=== PATIENT | female | born 2000 | race Caucasian/White ===

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

== ENCOUNTER 2020-04-05 06:35 | Emergency (ER) | payer BC ==
[2020-04-05 07:30] LABS: Pregnancy Test - Urine (BHCG) POSITIVE (Negative); Pregu Control Background? CLEAR/WHITE (CLR/WHITE); Pregu Control Bar Appear? YES (CONTROL BAR); Specific Gravity 1.018 (1.002-1.036)
--- NOTE | 2020-04-05 08:37 | ULT ---
ULTRASOUND PELVIC DOPPLER DUPLEX: Attention joshua in billing: This is pelvic ultrasound; no transvaginal ultrasound performed DATE: 04/05/2020 HISTORY: 20-year-old female in first trimester of . Concern for intrauterine demise. TECHNIQUE: Transabdominal transducer used to visualize intrapelvic contents with grayscale, color-flow, and spec tral analysis. FINDINGS: Intrauterine gestational sac at fundus and body has slightly irregular margins. Small amount of subchorionic hemorrhage. Abutting the right side of the gestational sac, there is a 2 x 3 x 2.5 cm myometrial mass with hetero geneous, mixed echogenicity, mostly intermediate, with some regions of hypoechogenicity. No free fluid in the cul-de-sac. pole crown-rump length 1.1 cm: 7 weeks 2 days heart rate: 149 bpm Bilateral ovaries normal in size, with blood flow demonstrated by Doppler. No corpus luteal cyst. IMPRESSION: 1) live first trimester intrauterine gestation estimated to be 7 weeks 2 days gestational age. 2) small amount of subchorionic hemorrhage, and slightly irregular shape of gestational sac.
== END 2020-04-05 08:25 | disposition home or self-care (01) ==
LOC: ERS 06:35
DX: Z71.1 Person with feared health complaint in whom no diagnosis is made (principal); Z3A.01 Less than 8 weeks gestation of pregnancy; O99.341 Other mental disorders complicating pregnancy, first trimester; F41.9 Anxiety disorder, unspecified
CPT/HCPCS: 36415; 76856; 81025; 84702; 93976